=== PATIENT | male | born 1955 | race Caucasian/White ===

== ENCOUNTER 2022-07-21 14:42 | Emergency (ER) | payer OTHER, BC ==
[~2022-07-21] VITALS: Ht 170.2 cm; Wt 86.2 kg
[2022-07-21 14:45] VITALS: BP_SYST 127
--- NOTE | 2022-07-21 14:45 | NUR ---
Patient triaged and placed in waiting room. VSS and patient appears in no acute distress at this time. Accompanied by SELF, awaiting available bed, and MD notified of need for MSE.
== END 2022-07-21 15:30 | disposition left against medical advice (07) ==
LOC: SED 14:42
DX: R05.9 Cough, unspecified (principal); R09.81 Nasal congestion; R42 Dizziness and giddiness; Z53.21 Procedure and treatment not carried out due to patient leaving prior to being seen by health care provider

== ENCOUNTER 2023-04-28 12:43 | Emergency (ER) | payer OTHER ==
[~2023-04-28] VITALS: Ht 170.2 cm; Wt 84.4 kg
[2023-04-28 12:54] VITALS: BP_SYST 133; PULSE 71; RESP 18; TEMP 98.3; O2SAT 98
== END 2023-04-28 15:00 | disposition left against medical advice (07) ==
LOC: SED 12:43
DX: M25.511 Pain in right shoulder (principal); M25.512 Pain in left shoulder; Z53.21 Procedure and treatment not carried out due to patient leaving prior to being seen by health care provider
CPT/HCPCS: 99281

== ENCOUNTER 2023-04-29 03:19 | Emergency (ER) | payer OTHER ==
[~2023-04-29] VITALS: Ht 170.2 cm; Wt 84.4 kg
[2023-04-29 03:31] VITALS: BP_SYST 167; PULSE 65; RESP 20; TEMP 98; O2SAT 95
[2023-04-29] MEDS ORDERED: ACETAMINOPHEN 500 MG TABLET PO ONE (03:45)
[2023-04-29 04:57] VITALS: BP_SYST 165; PULSE 57; RESP 18; TEMP 98; O2SAT 95
== END 2023-04-29 04:57 | disposition home or self-care (01) ==
LOC: SED 03:19
DX: S40.012A Contusion of left shoulder, initial encounter (principal); S40.011A Contusion of right shoulder, initial encounter; S29.9XXA Unspecified injury of thorax, initial encounter; Z79.899 Other long term (current) drug therapy; W18.49XA Other slipping, tripping and stumbling without falling, initial encounter; Y93.89 Activity, other specified; Y92.89 Other specified places as the place of occurrence of the external cause; Y99.8 Other external cause status
CPT/HCPCS: 72072-TC; 73030; 99284

== ENCOUNTER 2023-05-14 06:11 | Emergency (ER) | payer OTHER ==
[~2023-05-14] VITALS: Ht 170.2 cm; Wt 83.9 kg
[2023-05-14 06:44] VITALS: BP_SYST 158; PULSE 65; RESP 18; TEMP 98.3; O2SAT 97
[2023-05-14] MEDS ORDERED: ACETAMINOPHEN 500 MG TABLET PO ONE (07:00)
[2023-05-14] MEDS ORDERED: KETOROLAC TROMETHAMINE 15 MG VIAL IM ONE (07:00)
[2023-05-14] MEDS ORDERED: PSEUDOEPHEDRINE HCL 30 MG TABLET PO ONE (07:00)
[2023-05-14] MEDS ORDERED: FLUT16SP16 NS (07:04)
[2023-05-14] MEDS ORDERED: PSEU120T84 PO (07:04)
[2023-05-14 07:47] VITALS: BP_SYST 158; PULSE 65; RESP 18; TEMP 98.3; O2SAT 97
== END 2023-05-14 07:45 | disposition home or self-care (01) ==
LOC: SED 06:11
DX: J32.9 Chronic sinusitis, unspecified (principal); M25.511 Pain in right shoulder; M25.512 Pain in left shoulder; R09.81 Nasal congestion; Z79.899 Other long term (current) drug therapy
CPT/HCPCS: 99283; 96372; J1885

== ENCOUNTER 2023-12-13 15:04 | Emergency (ER) | payer BC, OTHER ==
[~2023-12-13] VITALS: Ht 167.6 cm; Wt 81.6 kg
[~2023-12-13 15:04] MED LIST: FLUT16SP16 NS; PSEU120T84 PO
[2023-12-13 15:40] VITALS: BP_SYST 144; PULSE 60; RESP 17; TEMP 96.9; O2SAT 95
[2023-12-13 16:05] LABS: BASOPHILS # (AUTO) 0.1 K/uL (0.0-0.2); BASOPHILS % (AUTO) 0.7 % (0.0-2.0); EOSINOPHILS # (AUTO) 0.3 K/uL (0.0-0.4); EOSINOPHILS % (AUTO) 2.4 % (0.0-4.0); HEMATOCRIT 45.4 % (36-54); HEMOGLOBIN 16.1 g/dL (14.0-18.0); LYMPHOCYTES # (AUTO) 4.9 K/uL (1.0-5.5); LYMPHOCYTES % (AUTO) 41.2 % (20.5-51.5); MEAN CORPUSCULAR HEMOGLOBIN 33 pg (27-31); MEAN CORPUSCULAR HGB CONC 35 % (32-36); MEAN CORPUSCULAR VOLUME 93 fL (79.0-98.0); MONOCYTES # (AUTO) 0.9 K/uL (0.0-1.0); MONOCYTES % (AUTO) 7.3 % (1.7-9.3); NEUTROPHILS # (AUTO) 5.8 K/uL (1.8-7.7); NEUTROPHILS % (AUTO) 48.4 % (40.0-70.0); PLATELET COUNT (AUTO) 263 K/uL (130-430); RED BLOOD CELL COUNT(AUTO) 4.91 MIL/uL (4.2-6.2); RED CELL DISTRIBUTION WIDTH 13.2 % (9.0-15.0)
[2023-12-13] MEDS: MECLIZINE HCL 25 MG TABLET (ANITVERT) PO ONE (16:09)
[2023-12-13 16:17] LABS: CREATININE 1.02 mg/dL (0.55-1.30); POTASSIUM 3.6 mmol/L (3.5-5.1)
[2023-12-13] MEDS ORDERED: MECL-225 PO (16:31)
[2023-12-13 17:21] VITALS: BP_SYST 144; PULSE 60; RESP 17; TEMP 96.9; O2SAT 95
== END 2023-12-13 16:42 | disposition home or self-care (01) ==
LOC: SED 15:04
DX: R42 Dizziness and giddiness (principal); R05.9 Cough, unspecified; R09.89 Other specified symptoms and signs involving the circulatory and respiratory systems; H53.8 Other visual disturbances; Z79.899 Other long term (current) drug therapy; Z86.16 Personal history of COVID-19
CPT/HCPCS: 36415; 70450-TC; 80048; 85025; 99284; J8597

== ENCOUNTER 2023-12-28 04:07 | Emergency (ER) | payer BC, OTHER ==
[~2023-12-28] VITALS: Ht 170.2 cm; Wt 81.6 kg
[~2023-12-28 04:07] MED LIST changes: +MECL-225 PO
[2023-12-28 04:29] VITALS: BP_SYST 152; PULSE 66; RESP 16; TEMP 97.8; O2SAT 97
[2023-12-28] MEDS: cefTRIAXone 1 GM in LIDOCAINE 1%, 20 ML MDV 2.1 ML IM ONE (05:17)
[2023-12-28] MEDS ORDERED: FLUT16SP16 NS (05:25)
[2023-12-28] MEDS ORDERED: AUG875 PO (05:25)
== END 2023-12-28 05:34 | disposition home or self-care (01) ==
LOC: SED 04:07
DX: K08.89 Other specified disorders of teeth and supporting structures (principal); R51.9 Headache, unspecified; M27.3 Alveolitis of jaws; Z79.899 Other long term (current) drug therapy; Z79.2 Long term (current) use of antibiotics
CPT/HCPCS: 99283; 96372; J0696; J2001

== ENCOUNTER 2024-02-27 09:27 | Emergency (ER) | payer BC, OTHER ==
[~2024-02-27] VITALS: Ht 170.2 cm; Wt 81.6 kg
[~2024-02-27 09:27] MED LIST changes: +AUG875 PO
[2024-02-27 09:37] VITALS: BP_SYST 146; PULSE 58; RESP 22; TEMP 98.3; O2SAT 95
[2024-02-27] MEDS ORDERED: AZITHROMYCIN 250 MG in NS 250 ML IV ONE (10:15)
[2024-02-27] MEDS: IPRATROPIUM/ALBUTEROL SULFATE 3 ML AMPUL.NEB (DUONEB) INH ONE (10:18)
[2024-02-27 10:32] LABS: BASOPHILS # (AUTO) 0.1 K/uL (0.0-0.2); BASOPHILS % (AUTO) 0.6 % (0.0-2.0); EOSINOPHILS # (AUTO) 0.2 K/uL (0.0-0.4); EOSINOPHILS % (AUTO) 1.8 % (0.0-4.0); HEMATOCRIT 45.4 % (36-54); HEMOGLOBIN 15.7 g/dL (14.0-18.0); LYMPHOCYTES # (AUTO) 4.2 K/uL (1.0-5.5); LYMPHOCYTES % (AUTO) 40.9 % (20.5-51.5); MEAN CORPUSCULAR HEMOGLOBIN 33 pg (27-31); MEAN CORPUSCULAR HGB CONC 35 % (32-36); MEAN CORPUSCULAR VOLUME 94 fL (79.0-98.0); MONOCYTES # (AUTO) 0.6 K/uL (0.0-1.0); MONOCYTES % (AUTO) 6.2 % (1.7-9.3); NEUTROPHILS # (AUTO) 5.2 K/uL (1.8-7.7); NEUTROPHILS % (AUTO) 50.5 % (40.0-70.0); PLATELET COUNT (AUTO) 236 K/uL (130-430); RED BLOOD CELL COUNT(AUTO) 4.83 MIL/uL (4.2-6.2); RED CELL DISTRIBUTION WIDTH 13.2 % (9.0-15.0); WHITE BLOOD COUNT (AUTO) 10.3 K/uL (4.8-10.8)
[2024-02-27] MEDS: AZITHROMYCIN 250 MG TABLET PO ONE (10:43)
[2024-02-27 10:54] LABS: INFLUENZA TYPE A Negative (NEGATIVE); INFLUENZA TYPE B NEGATIVE (NEGATIVE)
[2024-02-27 11:55] LABS: ANION GAP 8 (5-15); CALCIUM 8.9 mg/dL (8.4-11.0); CARBON DIOXIDE 27 mmol/L (23-29); CHLORIDE 103 mmol/L (98-107); CREATININE 0.95 mg/dL (0.55-1.30); GFR AFRICAN AMERICAN 102 mL/min (>90); GLUCOSE 95 mg/dL (74-106); POTASSIUM 3.8 mmol/L (3.5-5.1); SODIUM SERUM 138 mmol/L (136-145); UREA NITROGEN, BLOOD 12 mg/dL (8-21)
[2024-02-27 11:56] LABS: GFR NON AFRICAN-AMERICAN 84 mL/min (>90)
[2024-02-27] MEDS ORDERED: ALBMDI INH (12:54)
[2024-02-27] MEDS ORDERED: ZIT250 PO (12:55)
[2024-02-27 13:04] VITALS: BP_SYST 138; PULSE 58; RESP 20; TEMP 98.3; O2SAT 97
== END 2024-02-27 13:03 | disposition home or self-care (01) ==
LOC: SED 09:27
DX: J20.9 Acute bronchitis, unspecified (principal); Z20.822 Contact with and (suspected) exposure to COVID-19; I10 Essential (primary) hypertension; Z98.890 Other specified postprocedural states; Z79.899 Other long term (current) drug therapy; Z79.2 Long term (current) use of antibiotics
CPT/HCPCS: 99285; 71045; 87426; 80048; 83880; 85025; 87040; 84484; 36415; 93005; 94640; 83605; 87804 ×2; Q0144

== ENCOUNTER 2024-03-20 10:28 | Emergency (ER) | payer BC, OTHER ==
[~2024-03-20] VITALS: Ht 167.6 cm; Wt 83.9 kg
[~2024-03-20 10:28] MED LIST changes: +ALBMDI INH; +ZIT250 PO
[2024-03-20 10:37] VITALS: BP_SYST 171; PULSE 69; RESP 16; TEMP 97.8; O2SAT 96
[2024-03-20 11:14] LABS: BASOPHILS % (AUTO) 0.5 % (0.0-2.0); EOSINOPHILS # (AUTO) 0.1 K/uL (0.0-0.4); EOSINOPHILS % (AUTO) 1.4 % (0.0-4.0); HEMATOCRIT 47.7 % (36-54); HEMOGLOBIN 16.5 g/dL (14.0-18.0); LYMPHOCYTES # (AUTO) 4.3 K/uL (1.0-5.5); MEAN CORPUSCULAR HEMOGLOBIN 33 pg (27-31); MEAN CORPUSCULAR HGB CONC 35 % (32-36); MEAN CORPUSCULAR VOLUME 94 fL (79.0-98.0); MONOCYTES # (AUTO) 0.5 K/uL (0.0-1.0); NEUTROPHILS # (AUTO) 5.3 K/uL (1.8-7.7); NEUTROPHILS % (AUTO) 51.1 % (40.0-70.0); PLATELET COUNT (AUTO) 267 K/uL (130-430); RED BLOOD CELL COUNT(AUTO) 5.06 MIL/uL (4.2-6.2); RED CELL DISTRIBUTION WIDTH 13.3 % (9.0-15.0); WHITE BLOOD COUNT (AUTO) 10.3 K/uL (4.8-10.8)
[2024-03-20 11:40] LABS: INR 0.9 (0.80-1.20); PROTHROMBIN TIME 9.9 SECS (9.5-12.5)
[2024-03-20 12:16] LABS: ALANINE AMINOTRANSFERASE 26 U/L (12-78); ALBUMIN 3.8 g/dL (3.4-4.8); ANION GAP 10 (5-15); ASPARTATE AMINOTRANSFERASE 20 U/L (10-37); BILIRUBIN,DIRECT 0.1 mg/dL (0.0-0.3); CARBON DIOXIDE 26 mmol/L (23-29); CHLORIDE 106 mmol/L (98-107); CREATINE KINASE, TOTAL 138 U/L (39-308); CREATININE 0.95 mg/dL (0.55-1.30); GFR AFRICAN AMERICAN 102 mL/min (>90); GFR NON AFRICAN-AMERICAN 84 mL/min (>90); GLUCOSE 97 mg/dL (74-106); POTASSIUM 3.8 mmol/L (3.5-5.1); SODIUM SERUM 142 mmol/L (136-145); TOTAL BILIRUBIN 0.5 mg/dL (0.0-1.0); TOTAL PROTEIN, SERUM 6.8 g/dL (6.4-8.3); UREA NITROGEN, BLOOD 14 mg/dL (8-21)
[2024-03-20 13:00] VITALS: BP_SYST 155; PULSE 58; RESP 17; TEMP 97.8; O2SAT 96
== END 2024-03-20 13:03 | disposition home or self-care (01) ==
LOC: SED 10:28
DX: R20.2 Paresthesia of skin (principal); R20.0 Anesthesia of skin; I10 Essential (primary) hypertension; Z79.899 Other long term (current) drug therapy; Z79.2 Long term (current) use of antibiotics
CPT/HCPCS: 36415; 70450-TC; 71045; 80048; 80076; 82550; 84484; 85025; 85610; 85730; 93005; 99285